=== PATIENT | male | born 1955 | race Caucasian/White ===

== ENCOUNTER → 2016-05-28 | Outpatient (CLI) | payer OTHER ==
[~2016-05-28] VITALS: Ht 177.8 cm; Wt 109.8 kg
[~2016-05-28] MED LIST: ADULT LOW DOSE81 M1 PO; ADVAIR 250/501 DIS1; ADVAIR 500/501 DISK IH; ALBUTEROL SULF8.5 GM IH; ALBUTEROL2.5 MG/3 M IH; AMIODARONE HCL; AMIODARONE HCL200 MG PO; ASPIR-LOW81 MG PO; ASPIRIN E.C.81 M1 PO; ASPIRIN81 M1 PO; Asacol PO; CLEOCIN150 MG PO; CORDARONE200 MG PO; COUMADIN,JANTO7.5 MG PO; COUMADIN,JANTOVE5 MG PO; COUMADIN10 MG PO; COUMADIN5 MG PO; Cipro PO; Cordarone, Pacerone PO; DIGITEK125 MC2 PO; DIGOX125 MCG PO; DIGOXIN125 MCG PO; FLEXERIL10 MG PO; FLOVENT 11120 INHALA IH; FLOVENT DISKUS1 DIS2 IH; Flagyl PO; LANOXIN,DIGI0.125 MG PO; LIPITOR40 MG PO; LISINOPRIL10 MG PO; LISINOPRIL5 MG PO; LOPRESSOR; LOPRESSOR100 M1 PO; Lopressor PO; MEDROL4 MG PO; METOPROLOL SUC100 MG PO; METOPROLOL TAR100 MG PO; OMEPRAZOLE40 M1 PO; PACERONE200 MG PO; PERCOCET 5/31 TABLET PO; PRAVASTATIN SOD40 MG PO; PREVACID15 MG PO; PRILOSEC40 MG PO; Pravachol PO; SOTALOL120 MG PO; SOTALOL80 MG PO; SPIRIVA1 INHALATI IH; TOPROL XL100 MG PO; TOPROL XL50 MG PO; TRAMADOL HCL50 MG PO; ULTRAM50 MG PO; VYTORIN 10/11 TABLET PO; VYTORIN 10/41 TABLET PO; WARFARIN SODIUM5 MG PO; XARELTO20 MG PO; ZESTRIL,PRINIVI20 MG PO; ZESTRIL,PRINIVIL5 MG PO; ZESTRIL5 MG PO; Zestril,Prinivil PO; fluticasone; zocor PO
== END | disposition home or self-care (01) ==
LOC: AMB 09:11
PROC: 5A2204Z Restoration of Cardiac Rhythm, Single (ICD-10-PCS; principal; 2016-05-28)
DX: I48.91 Unspecified atrial fibrillation (principal); I25.10 Atherosclerotic heart disease of native coronary artery without angina pectoris; E78.5 Hyperlipidemia, unspecified; G47.33 Obstructive sleep apnea (adult) (pediatric); Z95.0 Presence of cardiac pacemaker; Z86.74 Personal history of sudden cardiac arrest; I10 Essential (primary) hypertension; I42.0 Dilated cardiomyopathy; Z79.82 Long term (current) use of aspirin; Z79.01 Long term (current) use of anticoagulants
CPT/HCPCS: 93005; 93312

== ENCOUNTER 2016-06-07 11:09 | Inpatient (IN) | payer OTHER ==
[~2016-06-07] VITALS: Ht 177.8 cm; Wt 98.7 kg
[2016-06-07 11:40] LABS: EOSINOPHIL (%) 0.8 % (0-5); EOSINOPHIL COUNT 0.1 K/uL (0-0.3); HEMATOCRIT 41.3 % (38.0-50.0); IMMATURE GRANULOCYTE (%) 0.4 % (0.0-0.7); INSTRUMENT ABS NEUTROPHIL CT 7.4 K/uL; MCH 28.1 PG (29.0-34.0); MCV 87.9 FL (86-99); MEAN PLAT.VOLUME 11.6 uM^3 (9.0-12.4); MONOCYTE (%) 8.9 % (3-12); MONOCYTE COUNT 0.9 K/uL (0-0.8); NEUTROPHIL (%) 70.6 % (45-76); NEUTROPHIL COUNT 7.4 K/uL (1.8-6.4); PLATELET COUNT 199 K/uL (156-360); RBC DIS.WIDTH-CV 13.1 % (11.8-14.6); RBC DIS.WIDTH-SD 42.5 % (39-53)
[2016-06-07 11:41] LABS: WHITE BLOOD COUNT 10.5 K/uL (4.1-10.2)
[2016-06-07 11:48] LABS: CHLORIDE 107 mEq/L (99-109); SODIUM 140 mEq/L (136-147)
[2016-06-07 11:49] LABS: INTER. NORMALIZED RATIO 1.1; PROTHROMBIN TIME 11.7 (9.2-11.2); PTT 29.2 (25-32)
[2016-06-07 11:50] LABS: GLUCOSE 78 mg/dL (70-99)
[2016-06-07 11:52] LABS: ANION GAP 8 MEQ/L (2-14)
[2016-06-07 11:54] LABS: GFR ESTIMATE (CALCULATED) > 59 mL/min/
[2016-06-07 11:55] LABS: UREA NITROGEN (BUN) 16 mg/dL (9-23)
[2016-06-07 12:00] LABS: TROP-I INTERPRETATION INDETERMINATE; TROPONIN-I 0.43 ng/mL (0.0-0.30)
[2016-06-07] MEDS ORDERED: FLOVENT DISKUS1 DIS2 IH (14:35)
[2016-06-07] MEDS ORDERED: LIDOCAINE HCL35 GM TP (14:36)
[2016-06-07] MEDS ORDERED: DS PREP PAK1 EACH TP (14:37)
[2016-06-07] MEDS ORDERED: DICLOFENAC SOD150 ML TP (14:39)
[2016-06-07 15:44] VITALS: BP 112/70
[2016-06-07 15:58] VITALS: BP 112/70
[2016-06-07 18:34] LABS: TROP-I INTERPRETATION INDETERMINATE; TROPONIN-I 0.44 ng/mL (0.0-0.30)
[2016-06-07 19:25] VITALS: BP 99/68
[2016-06-08 00:10] VITALS: BP 115/77
[2016-06-08 01:39] LABS: TROP-I INTERPRETATION INDETERMINATE; TROPONIN-I 0.33 ng/mL (0.0-0.30)
[2016-06-08 04:48] VITALS: BP 113/70
[2016-06-08 06:55] LABS: HEMATOCRIT 34.7 % (38.0-50.0); MCH 28.1 PG (29.0-34.0); MCHC 31.7 G/DL (30.0-36.0); MCV 88.5 FL (86-99); MEAN PLAT.VOLUME 11.7 uM^3 (9.0-12.4); PLATELET COUNT 154 K/uL (156-360); RBC DIS.WIDTH-CV 13.4 % (11.8-14.6); RBC DIS.WIDTH-SD 43.4 % (39-53); RED BLOOD COUNT 3.92 M/uL (4.00-5.50); WHITE BLOOD COUNT 7.9 K/uL (4.1-10.2)
[2016-06-08 07:11] LABS: ALKALINE PHOSPHATASE 66 IU/L (3-129); ANION GAP 6 MEQ/L (2-14); CHLORIDE 107 MEQ/L (99-109); GFR ESTIMATE (CALCULATED) > 59 mL/min/; POTASSIUM 4.2 MEQ/L (3.7-5.4); SAMPLE HEMOLYSIS CHECK 0; SAMPLE ICTERIC CHECK 0; SAMPLE LIPEMIA CHECK 0; SODIUM 140 MEQ/L (136-147); TOTAL BILIRUBIN 0.5 MG/DL (0.0-1.0); UREA NITROGEN (BUN) 14 mg/dL (9-23)
[2016-06-08 07:17] LABS: GLUCOSE 106 mg/dL (70-99)
[2016-06-08 09:00] VITALS: BP 128/76
[2016-06-08 12:06] VITALS: BP 114/72
== END 2016-06-08 13:20 | disposition home or self-care (01) | DRG 310 ==
LOC: EME 11:09 → EDOF 13:24 → 4EAST 15:05
PROVIDERS: Emergency Medicine; Internal Medicine
DX: I48.0 Paroxysmal atrial fibrillation (principal); G47.33 Obstructive sleep apnea (adult) (pediatric); I48.2 Chronic atrial fibrillation; I10 Essential (primary) hypertension; E78.5 Hyperlipidemia, unspecified; J44.9 Chronic obstructive pulmonary disease, unspecified; J45.909 Unspecified asthma, uncomplicated; F32.9 Major depressive disorder, single episode, unspecified; Z86.73 Personal history of transient ischemic attack (TIA), and cerebral infarction without residual deficits; Z86.74 Personal history of sudden cardiac arrest; Z91.14 Patient's other noncompliance with medication regimen; Z79.82 Long term (current) use of aspirin; Z87.891 Personal history of nicotine dependence; Z79.01 Long term (current) use of anticoagulants
CPT/HCPCS: 71010; 80048; 80053; 84484; 85025; 85027; 85610; 85730; 93005; 94640; 99281; 99285; J7030

== ENCOUNTER 2017-03-12 11:47 | Observation (INO) | payer OTHER ==
[~2017-03-12] VITALS: Ht 177.8 cm; Wt 102.9 kg
[~2017-03-12 11:47] MED LIST changes: +DICLOFENAC SOD150 ML TP; +DS PREP PAK1 EACH TP; +LIDOCAINE HCL35 GM TP
[2017-03-12 12:51] LABS: HEMATOCRIT 38.5 % (38.0-50.0); HEMOGLOBIN 12.7 G/DL (12.5-16.6); MCH 29.7 PG (29.0-34.0); MCV 90.2 FL (86-99); PLATELET COUNT 146 K/uL (156-360); RBC DIS.WIDTH-SD 42.6 % (39-53); RED BLOOD COUNT 4.27 M/uL (4.00-5.50); WHITE BLOOD COUNT 5.9 K/uL (4.1-10.2)
[2017-03-12 13:02] LABS: PTT 27.7 SEC (25-37)
[2017-03-12 13:04] LABS: CHLORIDE 107 mEq/L (99-109); POTASSIUM 4.5 mEq/L (3.7-5.4); SODIUM 141 mEq/L (136-147)
[2017-03-12 13:06] LABS: GLUCOSE 105 mg/dL (70-99)
[2017-03-12 13:10] LABS: CREATININE 1.2 mg/dL (0.6-1.3); GFR ESTIMATE (CALCULATED) > 59 mL/min/ (58.99-99999); UREA NITROGEN (BUN) 17 mg/dL (9-23)
[2017-03-12 13:15] LABS: TROP-I INTERPRETATION NEGATIVE; TROPONIN-I < 0.01 ng/mL (0.0-0.30)
[2017-03-12] MEDS ORDERED: OMEPRAZOLE-BIC1 EAC1 PO (14:23)
[2017-03-12] MEDS ORDERED: TYLENOL ARTHRI650 MG PO (14:24)
[2017-03-12] MEDS ORDERED: CORDARONE200 MG PO (14:25)
[2017-03-12] MEDS ORDERED: ZESTRIL5 MG PO (14:26)
[2017-03-12] MEDS ORDERED: ADVAIR 250/501 DISK IH (14:26)
[2017-03-12] MEDS ORDERED: VOLTAREN 1% GE100 GM TP (14:27)
[2017-03-12 16:12] LABS: HDL CHOLESTEROL 34 MG/DL (Desirable>=40); LDL CHOLESTEROL 101 mg/dL (Desirable<100); NON-HDL CHOLESTEROL 127 mg/dL (Desirable<160); TOTAL CHOLESTEROL 161 mg/dL (Desirable<200); TRIGLYCERIDES 132 MG/DL (Normal: <150)
[2017-03-12 16:30] VITALS: BP 136/82
[2017-03-12 19:17] LABS: TROP-I INTERPRETATION NEGATIVE; TROPONIN-I < 0.01 ng/mL (0.0-0.30)
[2017-03-12 20:41] VITALS: BP 120/77
[2017-03-13] VITALS: BP 156/86
[2017-03-13 00:56] LABS: TROP-I INTERPRETATION NEGATIVE; TROPONIN-I < 0.01 ng/mL (0.0-0.30)
[2017-03-13 10:12] VITALS: BP 155/82
[2017-03-13] MEDS ORDERED: CYCLOBENZAPRINE5 MG PO (14:20)
[2017-03-13 16:46] VITALS: BP 120/75
== END 2017-03-13 18:58 | disposition home or self-care (01) ==
LOC: EME 11:47 → 5WEST 13:30 → EDOF 13:30 → ENRESERV 13:39 → EDOF 14:14 → ENRESERV 14:42 → 5WEST 16:09
PROVIDERS: Hospitalist; Nurse Practitioner Family
DX: I25.110 Atherosclerotic heart disease of native coronary artery with unstable angina pectoris (principal); I25.5 Ischemic cardiomyopathy; I25.2 Old myocardial infarction; Z86.74 Personal history of sudden cardiac arrest; Z98.890 Other specified postprocedural states; Z95.810 Presence of automatic (implantable) cardiac defibrillator; Z86.73 Personal history of transient ischemic attack (TIA), and cerebral infarction without residual deficits; I10 Essential (primary) hypertension; I48.0 Paroxysmal atrial fibrillation; Z79.01 Long term (current) use of anticoagulants; Z87.891 Personal history of nicotine dependence; Z79.82 Long term (current) use of aspirin; Z82.49 Family history of ischemic heart disease and other diseases of the circulatory system; Z88.0 Allergy status to penicillin; Z91.013 Allergy to seafood
CPT/HCPCS: 71046; 80048; 80061; 84484; 85027; 85610; 85730; 87641; 93005; 94640; 94640 76; 99281; 99285; G0378; J2270